=== PATIENT | female | born 1955 | race Caucasian/White ===

== ENCOUNTER 2019-08-07 14:52 | Outpatient (CLI) | payer MEDICARE, OTHER ==
[~2019-08-07] VITALS: Ht 162.6 cm; Wt 71.0 kg
[2019-08-07] MEDS ORDERED: 00186-0372-20 IH (15:18)
[2019-08-07] MEDS ORDERED: PROAIR HFA0.09 MG/AC IH (15:19)
[2019-08-07] MEDS ORDERED: VITAMIND3 5000 PO (15:19)
[2019-08-07] MEDS ORDERED: SINGULAIR 110 MG/TAB PO (15:19)
[2019-08-07] MEDS ORDERED: MAGNESIUM500 MG PO (15:20)
[2019-08-07] MEDS ORDERED: CALCIUM 600MG+D1 TAB PO (15:20)
[2019-08-07] MEDS ORDERED: NATURAL POTASS595 MG PO (15:21)
[2019-08-07] MEDS ORDERED: B-121000 MCG (15:21)
[2019-08-07 15:22] VITALS: BP 130/71; PULSE 57; TEMP 98.4
== END 2019-08-07 16:00 | disposition home or self-care (01) ==
LOC: EUO 14:52
DX: Z51.81 Encounter for therapeutic drug level monitoring (principal); Z79.899 Other long term (current) drug therapy
CPT/HCPCS: J0517

== ENCOUNTER 2019-10-02 12:04 | Outpatient (CLI) | payer MEDICARE, OTHER ==
[~2019-10-02] VITALS: Ht 162.6 cm; Wt 66.1 kg
[~2019-10-02 12:04] MED LIST: 00186-0372-20 IH; B-121000 MCG; CALCIUM 600MG+D1 TAB PO; MAGNESIUM500 MG PO; NATURAL POTASS595 MG PO; PROAIR HFA0.09 MG/AC IH; SINGULAIR 110 MG/TAB PO; VITAMIND3 5000 PO
[2019-10-02 12:45] VITALS: BP 118/74; PULSE 78; TEMP 97.8
== END 2019-10-02 18:41 | disposition home or self-care (01) ==
LOC: EUO 12:04
DX: J45.50 Severe persistent asthma, uncomplicated (principal); Z90.89 Acquired absence of other organs; Z90.710 Acquired absence of both cervix and uterus; Z98.51 Tubal ligation status; Z98.890 Other specified postprocedural states
CPT/HCPCS: J0517

== ENCOUNTER 2019-11-27 07:36 | Outpatient (CLI) | payer MEDICARE, OTHER ==
[~2019-11-27] VITALS: Ht 162.6 cm; Wt 71.0 kg
[2019-11-27] MEDS ORDERED: ZOLOFT 25MG25 MG PO (08:06)
[2019-11-27] MEDS ORDERED: VISTARIL 2525 MG/CAP PO (08:07)
[2019-11-27 08:08] VITALS: BP 113/75; PULSE 68; TEMP 98.3
== END 2019-11-27 08:40 | disposition home or self-care (01) ==
LOC: EUO 07:36
DX: Z79.899 Other long term (current) drug therapy (principal)
CPT/HCPCS: J0517

== ENCOUNTER 2020-01-22 14:02 | Outpatient (CLI) | payer MEDICARE, OTHER ==
[~2020-01-22] VITALS: Ht 162.6 cm; Wt 71.3 kg
[~2020-01-22 14:02] MED LIST changes: +VISTARIL 2525 MG/CAP PO; +ZOLOFT 25MG25 MG PO
[2020-01-22 14:49] VITALS: BP 122/90; PULSE 83; TEMP 98.3
== END 2020-01-22 15:10 | disposition home or self-care (01) ==
LOC: EUO 14:02
DX: Z79.899 Other long term (current) drug therapy (principal)
CPT/HCPCS: J0517

== ENCOUNTER 2020-03-18 13:57 | Outpatient (CLI) | payer MEDICARE, OTHER ==
[2020-03-18 14:49] VITALS: BP 123/80; PULSE 73; TEMP 98.1
== END 2020-03-18 16:56 | disposition home or self-care (01) ==
LOC: EUO 13:57
DX: Z79.899 Other long term (current) drug therapy (principal)
CPT/HCPCS: J0517

== ENCOUNTER 2020-05-13 14:00 | Outpatient (CLI) | payer MEDICARE, OTHER ==
[~2020-05-13] VITALS: Ht 162.6 cm; Wt 74.5 kg
[2020-05-13] MEDS ORDERED: MELATONIN EXTRA1 TAB PO (14:17)
[2020-05-13 14:18] VITALS: BP 145/82; PULSE 77; TEMP 99
== END 2020-05-13 16:18 | disposition home or self-care (01) ==
LOC: EUO 14:00
DX: Z79.899 Other long term (current) drug therapy (principal)
CPT/HCPCS: J0517

== ENCOUNTER 2020-07-08 08:56 | Outpatient (CLI) | payer MEDICARE, OTHER ==
[~2020-07-08] VITALS: Ht 162.6 cm; Wt 74.8 kg
[~2020-07-08 08:56] MED LIST changes: +MELATONIN EXTRA1 TAB PO
[2020-07-08 09:53] VITALS: BP 150/89; PULSE 77; TEMP 98.7
[2020-07-08] MEDS ORDERED: VITAMIN B12 781 TAB PO (09:53)
== END 2020-07-08 10:27 | disposition home or self-care (01) ==
LOC: EUO 08:56
DX: Z79.899 Other long term (current) drug therapy (principal)
CPT/HCPCS: J0517

== ENCOUNTER 2020-09-02 13:46 | Outpatient (CLI) | payer MEDICARE, OTHER ==
[~2020-09-02] VITALS: Ht 162.6 cm; Wt 73.3 kg
[~2020-09-02 13:46] MED LIST changes: +VITAMIN B12 781 TAB PO
[2020-09-02 13:53] VITALS: BP 114/80; PULSE 82; TEMP 98.3
== END 2020-09-02 14:15 | disposition home or self-care (01) ==
LOC: EUO 13:46
DX: J45.50 Severe persistent asthma, uncomplicated (principal); Z79.899 Other long term (current) drug therapy
CPT/HCPCS: J0517

== ENCOUNTER 2020-11-11 14:01 | Outpatient (CLI) | payer MEDICARE, OTHER ==
[~2020-11-11] VITALS: Ht 162.6 cm; Wt 71.3 kg
[2020-11-11 14:26] VITALS: BP 149/80; PULSE 65; TEMP 98.4
== END 2020-11-11 18:00 ==
LOC: EUO 14:01
DX: J45.50 Severe persistent asthma, uncomplicated (principal); Z79.899 Other long term (current) drug therapy
CPT/HCPCS: J0517

== ENCOUNTER 2021-01-06 13:56 | Outpatient (CLI) | payer MEDICARE, OTHER ==
[~2021-01-06] VITALS: Ht 162.6 cm; Wt 72.5 kg
[2021-01-06 14:19] VITALS: BP 111/77; PULSE 81; TEMP 98.5
[2021-01-06] MEDS ORDERED: PULMICORT0.5 MG/2 M IH (14:22)
[2021-01-06] MEDS ORDERED: BROVANA15 MCG/2 M IH (14:22)
== END 2021-01-06 17:16 | disposition home or self-care (01) ==
LOC: EUO 13:56
DX: J45.50 Severe persistent asthma, uncomplicated (principal)
CPT/HCPCS: J0517

== ENCOUNTER 2021-03-03 13:43 | Outpatient (CLI) | payer MEDICARE, OTHER ==
[~2021-03-03] VITALS: Ht 162.6 cm; Wt 73.0 kg
[~2021-03-03 13:43] MED LIST changes: +BROVANA15 MCG/2 M IH; +PULMICORT0.5 MG/2 M IH
[2021-03-03 14:00] VITALS: BP 127/83; PULSE 72; TEMP 97.9
== END 2021-03-03 15:00 | disposition home or self-care (01) ==
LOC: EUO 13:43
DX: J45.50 Severe persistent asthma, uncomplicated (principal); Z79.899 Other long term (current) drug therapy
CPT/HCPCS: J0517

== ENCOUNTER 2021-05-05 14:04 | Outpatient (CLI) | payer MEDICARE, OTHER ==
[~2021-05-05] VITALS: Ht 162.6 cm; Wt 73.8 kg
[2021-05-05 14:32] VITALS: BP 122/73; PULSE 86; TEMP 98.7
== END 2021-05-05 15:00 | disposition home or self-care (01) ==
LOC: EUO 14:04
DX: J45.50 Severe persistent asthma, uncomplicated (principal); Z79.899 Other long term (current) drug therapy
CPT/HCPCS: J0517

== ENCOUNTER 2021-06-30 10:47 | Outpatient (CLI) | payer MEDICARE, OTHER ==
[~2021-06-30] VITALS: Ht 162.6 cm; Wt 74.7 kg
[2021-06-30 11:10] VITALS: BP 139/80; PULSE 81; TEMP 97.5
== END 2021-06-30 18:39 | disposition home or self-care (01) ==
LOC: EUO 10:47
DX: J45.50 Severe persistent asthma, uncomplicated (principal); Z79.899 Other long term (current) drug therapy
CPT/HCPCS: J0517

== ENCOUNTER 2021-08-25 13:54 | Outpatient (CLI) | payer MEDICARE, OTHER ==
[~2021-08-25] VITALS: Ht 162.6 cm; Wt 77.9 kg
[2021-08-25 14:21] VITALS: BP 132/82; PULSE 87; TEMP 98.7
== END 2021-08-25 14:30 ==
LOC: EUO 13:54
DX: J45.50 Severe persistent asthma, uncomplicated (principal); Z79.899 Other long term (current) drug therapy
CPT/HCPCS: J0517

== ENCOUNTER 2021-09-01 22:22 | Emergency (ER) | payer MEDICARE, OTHER ==
[~2021-09-01] VITALS: Ht 162.6 cm; Wt 77.3 kg
[2021-09-01 23:17] LABS: BASO % 0.2 % (0.0-2.0); GRAN # 2.8 K/mm3 (1.4-6.5); GRAN % 45.2 % (42.2-75.2); HEMATOCRIT 39.7 % (37.0-47.0); HEMOGLOBIN 13.6 g/dl (12.5-16.0); LYMPH # 2.9 K/mm3 (1.2-3.4); LYMPH % 46.4 % (20.0-51.0); MEAN CELL VOLUME 88 fl (80.0-100.0); MEAN CORPUSCULAR HEMOGLOBIN 30 pg (27-31); MEAN CORPUSCULAR HGB CONC 34 g/dl (33.0-37.0); MEAN PLATELET VOLUME 9.2 fl (7.4-10.4); MONO # 0.5 K/mm3 (0.1-0.6); MONO % 7.9 % (1.7-9.3); PLATELET COUNT 238 K/mm3 (130-400); RED BLOOD COUNT 4.53 M/mm3 (4.10-5.30); REDCELL DISTRIBUTION WIDTH-CV 12.9 % (11.5-14.5)
[2021-09-01 23:48] LABS: ALBUMIN 4.1 gm/dL (3.4-4.8); BILIRUBIN,TOTAL 0.6 mg/dL (0.2-1.2); CALCIUM 9.8 mg/dL (8.4-10.2); CREATININE, serum 0.72 mg/dL (0.57-1.11); POTASSIUM 3.5 mmol/L (3.5-4.5); TOTAL PROTEIN 7.2 gm/dL (6.2-8.1)
[2021-09-02] MEDS ORDERED: PROTONIX 40MG T40 MG PO (02:45)
[2021-09-02] MEDS ORDERED: NORCO 325 MG-51 TAB PO (02:45)
[2021-09-02] MEDS ORDERED: ZOFRAN ODT4 MG PO (02:45)
[2021-09-02 03:06] VITALS: BP 149/93; PULSE 78; TEMP 98.9
== END 2021-09-02 03:06 | disposition home or self-care (01) ==
LOC: COL.ER 22:22
PROVIDERS: Personal Emergency Response Attendant
DX: R10.13 Epigastric pain (principal); Z87.891 Personal history of nicotine dependence; Z91.040 Latex allergy status
CPT/HCPCS: C9113; J2270; J2405; J7030; Q9967

== ENCOUNTER → 2021-09-02 | Outpatient (CLI) | payer MEDICARE, OTHER ==
[~2021-09-02] MED LIST changes: +NORCO 325 MG-51 TAB PO; +PROTONIX 40MG T40 MG PO; +ZOFRAN ODT4 MG PO
== END ==
LOC: COL.RAD 07:57
DX: K76.0 Fatty (change of) liver, not elsewhere classified (principal)

== ENCOUNTER → 2021-09-06 | Outpatient (CLI) | payer MEDICARE, OTHER | LOC: COL.RAD 11:58 | DX: M50.321 Other cervical disc degeneration at C4-C5 level (principal); M48.02 Spinal stenosis, cervical region | CPT/HCPCS: A9575 ==

== ENCOUNTER 2021-10-20 13:57 | Outpatient (CLI) | payer MEDICARE, OTHER ==
[~2021-10-20] VITALS: Ht 162.6 cm; Wt 77.0 kg
[2021-10-20 14:26] VITALS: BP 138/89; PULSE 78; TEMP 98.4
[2021-10-20] MEDS ORDERED: ESTRACE0.1 MG/GM VG (14:26)
== END 2021-10-20 16:29 | disposition home or self-care (01) ==
LOC: EUO 13:57
DX: J45.50 Severe persistent asthma, uncomplicated (principal); Z79.899 Other long term (current) drug therapy
CPT/HCPCS: J0517

== ENCOUNTER 2021-12-15 13:57 | Outpatient (CLI) | payer MEDICARE, OTHER ==
[~2021-12-15] VITALS: Ht 162.6 cm; Wt 77.6 kg
[~2021-12-15 13:57] MED LIST changes: +ESTRACE0.1 MG/GM VG
[2021-12-15] MEDS ORDERED: VITAMIN C500 MG PO (14:14)
[2021-12-15] MEDS ORDERED: CALCIUM 600600 MG PO (14:16)
[2021-12-15] MEDS ORDERED: VITAMIND3 5000 PO (14:16)
[2021-12-15] MEDS ORDERED: MELATONIN5 M1 PO (14:17)
[2021-12-15] MEDS ORDERED: FASENRA30 MG/1 ML SQ (14:18)
[2021-12-15 14:21] VITALS: BP 131/84; PULSE 75; TEMP 99
[2021-12-15] MEDS ORDERED: PROTONIX20 MG PO (14:21)
== END 2021-12-15 14:40 | disposition home or self-care (01) ==
LOC: EUO 13:57
DX: J45.50 Severe persistent asthma, uncomplicated (principal)
CPT/HCPCS: J0517

== ENCOUNTER 2022-08-10 13:52 | Outpatient (CLI) | payer MEDICARE, OTHER ==
[~2022-08-10] VITALS: Ht 162.6 cm; Wt 76.3 kg
[~2022-08-10 13:52] MED LIST changes: +CALCIUM 600600 MG PO; +EPIPEN 2-PAK1 MG/ML IM; +FASENRA30 MG/1 ML SQ; +MELATONIN5 M1 PO; +PROTONIX20 MG PO; +VITAMIN C500 MG PO
[2022-08-10 14:28] VITALS: BP 144/89; PULSE 77; TEMP 98.1
== END 2022-08-10 15:04 ==
LOC: EUO 13:52
DX: J45.50 Severe persistent asthma, uncomplicated (principal)
CPT/HCPCS: J0517

== ENCOUNTER 2022-10-05 14:25 | Outpatient (CLI) | payer MEDICARE, OTHER ==
[~2022-10-05] VITALS: Ht 162.6 cm; Wt 74.4 kg
[2022-10-05 14:42] VITALS: BP 108/64; PULSE 86; TEMP 98.2
[2022-10-05] MEDS ORDERED: COZAAR 50MG50 MG/TAB PO (14:55)
== END 2022-10-05 14:48 | disposition home or self-care (01) ==
LOC: EUO 14:25
DX: J45.50 Severe persistent asthma, uncomplicated (principal)
CPT/HCPCS: J0517